=== PATIENT | male | born 1990 | race Hispanic/Latino ===

== ENCOUNTER 2018-04-03 13:10 | Emergency (ER) | payer BC ==
[2018-04-03 13:16] VITALS: RESP 18
--- NOTE | 2018-04-03 13:53 | ED PDOC ---
Lower Extremity Pain/Injury Time Seen by Provider: 04/03/18 13:19 Chief Complaint (Nursing): Lower Extremity Problem/Injury Chief Complaint (Provider): Lower Extremity Problem/Injury History Per: Patient History/Exam Limitations: no limitations Onset/Duration Of Symptoms: Mins (prior to arrival) Current Symptoms Are (Timing): Still Present Additional Complaint(s): 27 year old male presents to the ED for evaluation for left knee injury. Patient reports during a football game, he jumped for a ball and return to the ground heard "a pop" in his left knee. Since injury, he has not attempted to ambulate. Offers no other medical complaints. PMD: none provided Past Medical History Reviewed: Historical Data, Nursing Documentation, Vital Signs Vital Signs: Last Vital Signs Temp 98.2 F 04/03/18 13:13 Pulse 111 H 04/03/18 13:13 Resp 18 04/03/18 13:13 BP 138/92 H 04/03/18 13:13 Pulse Ox 98 04/03/18 13:13 - Medical History PMH: No Chronic Diseases - Surgical History Surgical History: No Surg Hx - Family History Family History: States: Unknown Family Hx - Home Medications Home Medications: Ambulatory Orders Medication Instructions Recorded Naproxen [Naprosyn] 500 mg PO BID PRN #15 tablet 04/03/18 - Allergies Allergies/Adverse Reactions: Allergies Allergy/AdvReac Type Severity Reaction Status Date / Time No Known Allergies Allergy Verified 04/03/18 13:13 Review of Systems ROS Statement: Except As Marked, All Systems Reviewed And Found Negative Musculoskeletal: Positive for: Leg Pain (left knee pain) Physical Exam - Reviewed Nursing Documentation Reviewed: Yes Vital Signs Reviewed: Yes - Physical Exam Appears: Positive for: Non-toxic, No Acute Distress (eating pizza on exam ) Head Exam: Positive for: ATRAUMATIC, NORMAL INSPECTION, NORMOCEPHALIC Skin: Positive for: Normal Color, Warm, Dry Eye Exam: Positive for: EOMI, Normal appearance, PERRL Pulses-Dorsalis Pedis (L): 2+ Extremity: Positive for: Normal ROM (full at left knee), Tenderness (to superior medial left knee with some edema ), Other (sensation intact). Negative for: Deformity (obvious deformity and erythema ) Neurologic/Psych: Positive for: Alert, Oriented. Negative for: Motor/Sensory Deficits - ECG O2 Sat by Pulse Oximetry: 98 (RA) Pulse Ox Interpretation: Normal Medical Decision Making Medical Decision Makin:31 Initial Plan: --Left knee x-ray --Toradol 15 mg IM 14:[address] Trevizo, agrees with knee immobilizer, crutches and follow-up in office. Scribe Attestation: Documented by Julia Bonds, acting as a scribe for Bella Baldwin MD Provider Scribe Attestation: All medical record entries made by the Scribe were at my direction and personally dictated by me. I have reviewed the chart and agree that the record accurately reflects my personal performance of the history, physical exam, medical decision making, and the department course for this patient. I have also personally directed, reviewed, and agree with the discharge instructions and disposition. Disposition - Clinical Impression Clinical Impression: Knee strain - Disposition Referrals: Sil Trevizo MD [Staff Provider] - Condition: STABLE Prescriptions: Naproxen [Naprosyn] 500 mg PO BID PRN #15 tablet PRN Reason: Pain, Moderate (4-7) Instructions: Knee Sprain (DC) Forms: [employer] ([place])
--- NOTE | 2018-04-03 16:00 | RAD ---
Date of service: 04/03/2018 PROCEDURE: Left Knee Radiographs. HISTORY: Pain. COMPARISON: None. FINDINGS: BONES: Normal. No fracture. JOINTS: Normal. No osteoarthritis. JOINT EFFUSION: Small suprapatellar joint effusion. OTHER FINDINGS: None. IMPRESSION: No evidence of acute displaced fracture nor dislocation. Small suprapatellar joint effusion.
[2018-04-03 16:29] VITALS: BP 120/72; PULSE 70; TEMP 98; O2SAT 100
== END 2018-04-03 15:45 | disposition home or self-care (01) ==
LOC: H.ER 13:10
DX: S86.912A Strain of unspecified muscle(s) and tendon(s) at lower leg level, left leg, initial encounter (principal); Y93.61 Activity, american tackle football
CPT/HCPCS: 73562; 96372; 99285; J1885